=== PATIENT | male | born 1985 | race Caucasian/White ===

== ENCOUNTER 2017-12-25 12:57 | Inpatient (IN) | payer OTHER ==
[2017-12-25 14:30] VITALS: BMI 23.0
--- NOTE | 2017-12-25 15:38 | HP ---
CIWA Score - CIWA Score Nausea/Vomitin-No Nausea/No Vomiting Muscle Tremors: 4-Moderate,w/Arms Extend Anxiety: 4-Mod. Anxious/Guarded Agitation: 2 Paroxysmal Sweats: 3 Orientation: 0-Oriented Tacttile Disturbances: 2-Mild Itch/Numbness/Burn Auditory Disturbances: 0-None Visual Disturbances: 0-None Headache: 2-Mild CIWA-Ar Total Score: 17 Admission ROS [facility] - HPI Chief Complaint: "I need to get clean." Patient is here to Detox from Alcohol. Allergies/Adverse Reactions: Allergies Allergy/AdvReac Type Severity Reaction Status Date / Time Penicillins Allergy Severe Hives Verified 12/25/17 15:32 History of Present Illness: Patient is a 32 YO male here to Detox from Alcohol. This is patient's first Detox / Rehab admission ever. Exam Limitations: No Limitations - Ebola screening Have you traveled outside of the country in the last 21 days: No Have you had contact with anyone from an Ebola affected area: No Have you been sick,other than usual withdrawal symptoms: No Do you have a fever: No - Review of Systems Constitutional: Diaphoresis, Loss of Appetite, Malaise, Changes in sleep EENT: reports: No Symptoms Reported Respiratory: reports: No Symptoms reported Cardiac: reports: No Symptoms Reported GI: reports: No Symptoms Reported : reports: No Symptoms Reported Musculoskeletal: reports: Joint Pain, Muscle Pain, Joint Stiffness Integumentary: reports: No Symptoms Reported Neuro: reports: Headache, Tremors Endocrine: reports: No Symptoms Reported Hematology: reports: No Symptoms Reported Psychiatric: reports: Judgement Intact, Mood/Affect Appropiate, Orientated x3, Anxious, Depressed Other Systems: Reviewed and Negative Patient History - Patient Medical History Hx Anemia: No Hx Asthma: No Hx Chronic Obstructive Pulmonary Disease (COPD): No Hx Cancer: No Hx Cardiac Disorders: No Hx Congestive Heart Failure: No Hx Hypertension: No Hx Hypercholesterolemia: No Hx Pacemaker: No HX Cerebrovascular Accident: No Hx Seizures: No Hx Dementia: No Hx Diabetes: No Hx Gastrointestinal Disorders: No Hx Liver Disease: No Hx Genitourinary Disorders: No Hx Sexually Transmitted Disorders: No Hx Renal Disease (ESRD): No Hx Thyroid Disease: No Hx Human Immunodeficiency Virus (HIV): No (Last Tested: approx. 1 year ago: NEGATIVE.) Hx Hepatitis C: No (Last Tested: approx. 1 year ago: NEGATIVE.) Hx Depression: No Hx Suicide Attempt: No (PATIENT DENIES CURRENT SI / HI.) Hx Bipolar Disorder: No Hx Schizophrenia: No Other Medical History: DENIES. - Patient Surgical History Past Surgical History: No Hx Neurologic Surgery: No Hx Cataract Extraction: No Hx Cardiac Surgery: No Hx Lung Surgery: No Hx Breast Surgery: No Hx Breast Biopsy: No Hx Abdominal Surgery: No Hx Appendectomy: No Hx Cholecystectomy: No Hx Genitourinary Surgery: No Hx Orthopedic Surgery: No Other Surgical History: DENIES. Anesthesia Reaction: No - PPD History Previous Implant?: Yes Documented Results: Negative w/o proof Implanted On Prior R Admission?: No PPD to be Administered?: Yes - Reproductive History Patient is a Female of Child Bearing Age (11 -55 yrs old): No (PATIENT IS MALE.) - Smoking Cessation Smoking history: Never smoked Have you smoked in the past 12 months: No Cigars Per Day: 0 Hx Chewing Tobacco Use: No Initiated information on smoking cessation: No - Substance & Tx. History Hx Alcohol Use: Yes Hx Substance Use: Yes Substance Use Type: Alcohol, Cocaine Hx Substance Use Treatment: No - Substances Abused Alcohol Route: Oral Frequency: Daily Amount used: 0.5 L bottle Vodka. Age of first use: 19 Date of Last Use: 12/25/17 Cocaine Route: Inhalation Frequency: 3-6 times per week Amount used: 1 Gram. Age of first use: 19 Date of Last Use: 12/24/17 PCP Route: Smoking Frequency: Daily Amount used: 1 Blunt. Age of first use: 26 Date of Last Use: 12/24/17 Family Disease History - Family Disease History Family History: Denies Admission Physical Exam [facility] - Vital Signs Vital Signs: Vital Signs - 24 hr 12/25/17 14:28 Temperature 97.2 F L Pulse Rate 78 Respiratory 20 Rate Blood Pressure 140/66 - Physical General Appearance: Yes: No Apparent Distress, Nourished, Appropriately Dressed , Tremorous, Anxious HEENTM: Yes: Hearing grossly Normal, Normocephalic, Normal Voice, PAMELA, Pharynx Normal Respiratory: Yes: Chest Non-Tender, Lungs Clear, No Respiratory Distress, No Accessory Muscle Use Neck: Yes: No masses,lesions,Nodules, Supple, Trachea in good position Breast: Yes: Breast Exam Deferred Cardiology: Yes: Regular Rhythm, Regular Rate, S1, S2 Abdominal: Yes: Normal Bowel Sounds, Non Tender, Flat, Soft Genitourinary: Yes: Within Normal Limits Back: Yes: Normal Inspection Musculoskeletal: Yes: full range of Motion, Gait Steady, Muscle Pain Extremities: Yes: Normal Capillary Refill, Normal Range of Motion, Non-Tender, Tremors Neurological: Yes: Fully Oriented, Alert, Normal Mood/Affect, Normal Response Integumentary: Yes: Normal Color, Dry, Warm Lymphatic: Yes: Within Normal Limits - Diagnostic (1) Alcohol dependence with uncomplicated withdrawal Current Visit: Yes Status: Acute (2) Cocaine dependence, uncomplicated Current Visit: Yes Status: Chronic (3) PCP (phencyclidine) abuse Current Visit: Yes Status: Chronic Cleared for Admission [facility] - Detox or Rehab [facility] Level of Care: Medically Managed Detox Regimen/Protocol: Librium [facility] Breath Alcohol Content Breath Alcohol Content: 0 Urine Drug Screen - Results Drug Screen Negative: No Urine Drug Screen Results: SHYLA-Cocaine, PCP-Phencyclidine
[2017-12-25] MEDS ORDERED: chlordiazePOXIDE HCL 25 MG CAPSULE PO ONE ×2 (15:58→18:15)
[2017-12-25] MEDS ORDERED: MAG HYDROX/AL HYDROX/SIMETH 30 ML UNIT-DOSE CUP PO PRN (15:58)
[2017-12-25] MEDS ORDERED: MAGNESIUM CITRATE 300 ML BOTTLE PO PRN (15:58)
[2017-12-25] MEDS ORDERED: IBUPROFEN 400 MG TABLET (FP) PO PRN (15:58)
[2017-12-25] MEDS ORDERED: ACETAMINOPHEN 325 MG TABLET (FP) PO PRN (15:58)
[2017-12-25] MEDS ORDERED: MENTHOL/PHENOL 1 EACH UD MM PRN (15:58)
[2017-12-25] MEDS ORDERED: LOPERAMIDE HCL 2 MG CAPSULE PO PRN (15:58)
[2017-12-25] MEDS ORDERED: guaiFENesin/D-METHORPHAN HB 10 ML UNIT-DOSE CUPS PO PRN (15:58)
[2017-12-25] MEDS ORDERED: P-EPHED 60MG/TRIPROLIDI 2.5MG TABLET PO PRN (15:58)
[2017-12-25] MEDS ORDERED: chlordiazePOXIDE HCL 25 MG CAPSULE PO PRN (15:58)
[2017-12-25] MEDS ORDERED: MAGNESIUM HYDROX 2400MG/30ML ORAL SUSPENSION 30 ML CUP PO PRN (15:58)
[2017-12-25] MEDS: chlordiazePOXIDE HCL 25 MG CAPSULE PO SCH (22:24)
[2017-12-25] MEDS: THIAMINE HCL 100 MG TABLET (FP) PO SCH (22:24)
[2017-12-25] MEDS: HYDROCORTISONE 0.5% TOPICAL OINTMENT TUBE TP SCH (22:25)
[2017-12-25 22:52] LABS: URINE APPEARANCE CLEAR; URINE BILIRUBIN NEGATIVE (NEGATIVE); URINE BLOOD 1+ (NEGATIVE); URINE COLOR LTYELLOW; URINE GLUCOSE (UA) NEGATIVE (NEGATIVE); URINE KETONE NEGATIVE (NEGATIVE); URINE LEUK ESTERASE NEGATIVE (NEGATIVE); URINE NITRITE NEGATIVE (NEGATIVE); URINE PROTEIN NEGATIVE (NEGATIVE); URINE UROBILINOGEN NEGATIVE mg/dL (0.2-1.0)
[2017-12-25 22:59] LABS: URINE BACTERIA RARE /hpf (NONE SEEN)
[2017-12-26] MEDS: chlordiazePOXIDE HCL 25 MG CAPSULE PO SCH ×4 (05:54→22:19)
[2017-12-26 09:58] LABS: HEMOGLOBIN 13.1 GM/dL (11.7-16.9); MCH 33.6 pg (25.7-33.7); MCHC 34.4 g/dl (32.0-35.9); MEAN CELL VOLUME 97.7 fl (80-96); MEAN PLT VOLUME 8.1 fl (7.5-11.1); PLATELET COUNT 291 K/MM3 (134-434); RBC 3.89 M/mm3 (4.00-5.60); RDW 13.4 % (11.9-15.9)
--- NOTE | 2017-12-26 10:03 | EKG ---
Test Reason : Blood Pressure : / mmHG Vent. Rate : 058 BPM Atrial Rate : 058 BPM P-R Int : 126 ms QRS Dur : 100 ms QT Int : 414 ms P-R-T Axes : 038 -43 028 degrees QTc Int : 406 ms SINUS BRADYCARDIA NON-SPECIFIC INTRA-VENTRICULAR CONDUCTION DELAY ABNORMAL ECG Confirmed by GHAZAL KENNEDY MD ([id number]) on 12/26/2017 10:03:24 AM Referred By: Confirmed By:GHAZAL KENNEDY MD
--- NOTE | 2017-12-26 10:05 | EKG ---
Test Reason : Blood Pressure : / mmHG Vent. Rate : 063 BPM Atrial Rate : 063 BPM P-R Int : 120 ms QRS Dur : 092 ms QT Int : 398 ms P-R-T Axes : 023 -47 056 degrees QTc Int : 407 ms NORMAL SINUS RHYTHM LEFT ANTERIOR FASCICULAR BLOCK ABNORMAL ECG NO PREVIOUS ECGS AVAILABLE Confirmed by GHAZAL KENNEDY MD ([id number]) on 12/26/2017 10:04:32 AM Referred By: Confirmed By:GHAZAL KENNEDY MD
[2017-12-26 10:17] LABS: ALBUMIN 3.4 g/dl (3.4-5.0); ANION GAP 9 (8-16); BILIRUBIN,TOTAL 0.4 mg/dL (0.2-1.0); BLOOD UREA NITROGEN 16 mg/dL (7-18); CALCIUM 8.4 mg/dL (8.5-10.1); CHLORIDE 107 mmol/L (98-107); CO2 28 mmol/L (21-32); CREATININE 0.7 mg/dL (0.7-1.3); GLUCOSE,RANDOM 95 mg/dL (74-106); SGOT/AST 12 U/L (15-37); SGPT/ALT 16 U/L (12-78); SODIUM 144 mmol/L (136-145); TOT PROT 6.1 g/dl (6.4-8.2)
[2017-12-26 10:18] LABS: ALK PHOS 70 U/L (45-117)
[2017-12-26] MEDS: HYDROCORTISONE 0.5% TOPICAL OINTMENT TUBE TP SCH ×2 (11:01→22:19)
[2017-12-26] MEDS: PRENATAL VITAMINS W/ FOLIC ACID TABLET (FP) PO SCH (11:01)
--- NOTE | 2017-12-26 12:47 | PN ---
[facility] CIWA - CIWA Score Nausea/Vomitin-No Nausea/No Vomiting Muscle Tremors: 4-Moderate,w/Arms Extend Anxiety: 4-Mod. Anxious/Guarded Agitation: 3 Paroxysmal Sweats: No Perspiration Orientation: 0-Oriented Tacttile Disturbances: 0-None Auditory Disturbances: 0-None Visual Disturbances: 0-None Headache: 0-None Present CIWA-Ar Total Score: 11 S Progress Note (SOAP) Subjective: ANXIETY,IRRITABILITY,FATIGUE. Objective: 12/26/17 12:46 Vital Signs Temperature 96.5 F L 12/26/17 10:34 Pulse Rate 68 12/26/17 10:34 Respiratory Rate 18 12/26/17 10:34 Blood Pressure 109/66 12/26/17 10:34 O2 Sat by Pulse Oximetry (%) Laboratory Last Values WBC 5.0 K/mm3 (4.0-10.0) 12/26/17 07:00 RBC 3.89 M/mm3 (4.00-5.60) L 12/26/17 07:00 Hgb 13.1 GM/dL (11.7-16.9) 12/26/17 07:00 Hct 38.0 % (35.4-49) 12/26/17 07:00 MCV 97.7 fl (80-96) H 12/26/17 07:00 MCH 33.6 pg (25.7-33.7) 12/26/17 07:00 MCHC 34.4 g/dl (32.0-35.9) 12/26/17 07:00 RDW 13.4 % (11.9-15.9) 12/26/17 07:00 Plt Count 291 K/MM3 (134-434) 12/26/17 07:00 MPV 8.1 fl (7.5-11.1) 12/26/17 07:00 Sodium 144 mmol/L (136-145) 12/26/17 07:00 Potassium 4.0 mmol/L (3.5-5.1) 12/26/17 07:00 Chloride 107 mmol/L (98-107) 12/26/17 07:00 Carbon Dioxide 28 mmol/L (21-32) 12/26/17 07:00 Anion Gap 9 (8-16) 12/26/17 07:00 BUN 16 mg/dL (7-18) 12/26/17 07:00 Creatinine 0.7 mg/dL (0.7-1.3) 12/26/17 07:00 Creat Clearance w eGFR > 60 (>60) 12/26/17 07:00 Random Glucose 95 mg/dL (74-106) 12/26/17 07:00 Calcium 8.4 mg/dL (8.5-10.1) L 12/26/17 07:00 Total Bilirubin 0.4 mg/dL (0.2-1.0) 12/26/17 07:00 AST 12 U/L (15-37) L 12/26/17 07:00 ALT 16 U/L (12-78) 12/26/17 07:00 Alkaline Phosphatase 70 U/L (45-117) 12/26/17 07:00 Total Protein 6.1 g/dl (6.4-8.2) L 12/26/17 07:00 Albumin 3.4 g/dl (3.4-5.0) 12/26/17 07:00 Urine Color Ltyellow 12/25/17 20:20 Urine Appearance Clear 12/25/17 20:20 Urine pH 7.0 (5.0-8.0) 12/25/17 20:20 Ur Specific [place] 1.010 (1.001-1.035) 12/25/17 20:20 Urine Protein Negative (NEGATIVE) 12/25/17 20:20 Urine Glucose (UA) Negative (NEGATIVE) 12/25/17 20:20 Urine Ketones Negative (NEGATIVE) 12/25/17 20:20 Urine Blood 1+ (NEGATIVE) H 12/25/17 20:20 Urine Nitrite Negative (NEGATIVE) 12/25/17 20:20 Urine Bilirubin Negative (NEGATIVE) 12/25/17 20:20 Urine Urobilinogen Negative mg/dL (0.2-1.0) 12/25/17 20:20 Ur Leukocyte Esterase Negative (NEGATIVE) 12/25/17 20:20 Urine WBC (Auto) <1 /hpf (3-5) 12/25/17 20:20 Urine RBC (Auto) 1 /hpf (0-3) 12/25/17 20:20 Urine Bacteria Rare /hpf (NONE SEEN) 12/25/17 20:20 HIV 1&2 Antibody Screen Negative 12/26/17 07:00 HIV P24 Antigen Negative 12/26/17 07:00 Assessment: 12/26/17 12:47 WITHDRAWAL SX Plan: CONTINUE DETOX INCREASE PO FLUIDS
[2017-12-26] MEDS: THIAMINE HCL 100 MG TABLET (FP) PO SCH (22:19)
[2017-12-27] MEDS: chlordiazePOXIDE HCL 25 MG CAPSULE PO SCH ×3 (06:04→17:06)
[2017-12-27] MEDS: PRENATAL VITAMINS W/ FOLIC ACID TABLET (FP) PO SCH (10:36)
[2017-12-27] MEDS: HYDROCORTISONE 0.5% TOPICAL OINTMENT TUBE TP SCH ×2 (11:36→22:31)
--- NOTE | 2017-12-27 16:03 | PN ---
[facility] CIWA - CIWA Score Nausea/Vomitin-No Nausea/No Vomiting Muscle Tremors: 2 Anxiety: 4-Mod. Anxious/Guarded Agitation: 0-Normal Activity Paroxysmal Sweats: 3 Orientation: 0-Oriented Tacttile Disturbances: 2-Mild Itch/Numbness/Burn Auditory Disturbances: 0-None Visual Disturbances: 0-None Headache: 0-None Present CIWA-Ar Total Score: 11 S Progress Note (SOAP) Subjective: Anxious, Sweating, Interrupted sleep. Objective: PATIENT A & O X 3, OBSERVED AMBULATING ON UNIT. NO ACUTE DISTRESS. 12/27/17 16:04 Vital Signs Temperature 96.9 F L 12/27/17 13:50 Pulse Rate 97 H 12/27/17 13:50 Respiratory Rate 20 12/27/17 13:50 Blood Pressure 112/67 12/27/17 13:50 O2 Sat by Pulse Oximetry (%) Laboratory Tests 12/25/17 12/26/17 12/26/17 20:20 07:00 07:00 WBC 5.0 RBC 3.89 L Hgb 13.1 Hct 38.0 MCV 97.7 H MCH 33.6 MCHC 34.4 RDW 13.4 Plt Count 291 MPV 8.1 Sodium 144 Potassium 4.0 Chloride 107 Carbon Dioxide 28 Anion Gap 9 BUN 16 Creatinine 0.7 Creat Clearance w eGFR > 60 Random Glucose 95 Calcium 8.4 L Total Bilirubin 0.4 AST 12 L ALT 16 Alkaline Phosphatase 70 Total Protein 6.1 L Albumin 3.4 Urine Color Ltyellow Urine Appearance Clear Urine pH 7.0 Ur Specific [place] 1.010 Urine Protein Negative Urine Glucose (UA) Negative Urine Ketones Negative Urine Blood 1+ H Urine Nitrite Negative Urine Bilirubin Negative Urine Urobilinogen Negative Ur Leukocyte Esterase Negative Urine WBC (Auto) <1 Urine RBC (Auto) 1 Urine Bacteria Rare RPR Titer Hep C Ab Diagnostic HIV 1&2 Antibody Screen HIV P24 Antigen 12/26/17 12/26/17 12/26/17 07:00 07:00 07:00 WBC RBC Hgb Hct MCV MCH MCHC RDW Plt Count MPV Sodium Potassium Chloride Carbon Dioxide Anion Gap BUN Creatinine Creat Clearance w eGFR Random Glucose Calcium Total Bilirubin AST ALT Alkaline Phosphatase Total Protein Albumin Urine Color Urine Appearance Urine pH Ur Specific [place] Urine Protein Urine Glucose (UA) Urine Ketones Urine Blood Urine Nitrite Urine Bilirubin Urine Urobilinogen Ur Leukocyte Esterase Urine WBC (Auto) Urine RBC (Auto) Urine Bacteria RPR Titer Nonreactive Hep C Ab Diagnostic <0.1 HIV 1&2 Antibody Screen Negative HIV P24 Antigen Negative labs noted. Assessment: 12/27/17 16:04 WITHDRAWAL SYMPTOMS. Plan: CONTINUE DETOX.
[2017-12-27] MEDS: THIAMINE HCL 100 MG TABLET (FP) PO SCH (22:31)
[2017-12-27] MEDS: chlordiazePOXIDE 5 MG CAPSULE PO SCH (22:32)
[2017-12-27] MEDS: MELATONIN 5 MG TABLETS PO PRN (23:00)
[2017-12-28] MEDS: chlordiazePOXIDE 5 MG CAPSULE PO SCH ×3 (07:21→17:08)
[2017-12-28] MEDS: HYDROCORTISONE 0.5% TOPICAL OINTMENT TUBE TP SCH ×2 (10:47→22:34)
[2017-12-28] MEDS: PRENATAL VITAMINS W/ FOLIC ACID TABLET (FP) PO SCH (10:47)
--- NOTE | 2017-12-28 13:30 | PN ---
S Progress Note (SOAP) Subjective: Nausea, stomach ache, chills, interrupted sleep, headache, diarrhea Objective: 12/28/17 13:28 Last Vital Signs Temp Pulse Resp BP Pulse Ox 97.2 F L 84 18 109/70 12/28/17 09:50 12/28/17 09:50 12/28/17 09:50 12/28/17 09:50 Laboratory Tests 12/25/17 12/26/17 12/26/17 20:20 07:00 07:00 WBC 5.0 RBC 3.89 L Hgb 13.1 Hct 38.0 MCV 97.7 H MCH 33.6 MCHC 34.4 RDW 13.4 Plt Count 291 MPV 8.1 Sodium 144 Potassium 4.0 Chloride 107 Carbon Dioxide 28 Anion Gap 9 BUN 16 Creatinine 0.7 Creat Clearance w eGFR > 60 Random Glucose 95 Calcium 8.4 L Total Bilirubin 0.4 AST 12 L ALT 16 Alkaline Phosphatase 70 Total Protein 6.1 L Albumin 3.4 Urine Color Ltyellow Urine Appearance Clear Urine pH 7.0 Ur Specific [place] 1.010 Urine Protein Negative Urine Glucose (UA) Negative Urine Ketones Negative Urine Blood 1+ H Urine Nitrite Negative Urine Bilirubin Negative Urine Urobilinogen Negative Ur Leukocyte Esterase Negative Urine WBC (Auto) <1 Urine RBC (Auto) 1 Urine Bacteria Rare RPR Titer Hep C Ab Diagnostic HIV 1&2 Antibody Screen HIV P24 Antigen 12/26/17 12/26/17 12/26/17 07:00 07:00 07:00 WBC RBC Hgb Hct MCV MCH MCHC RDW Plt Count MPV Sodium Potassium Chloride Carbon Dioxide Anion Gap BUN Creatinine Creat Clearance w eGFR Random Glucose Calcium Total Bilirubin AST ALT Alkaline Phosphatase Total Protein Albumin Urine Color Urine Appearance Urine pH Ur Specific [place] Urine Protein Urine Glucose (UA) Urine Ketones Urine Blood Urine Nitrite Urine Bilirubin Urine Urobilinogen Ur Leukocyte Esterase Urine WBC (Auto) Urine RBC (Auto) Urine Bacteria RPR Titer Nonreactive Hep C Ab Diagnostic <0.1 HIV 1&2 Antibody Screen Negative HIV P24 Antigen Negative Labs reviewed: UA 1+ blood Assessment: 12/28/17 13:29 Withdrawal symptoms Noted with microscopic hematuria Plan: Continue detox Microscopic hematuria: encouraged to drink lots of water, repeat UA
[2017-12-28] MEDS: chlordiazePOXIDE HCL 10 MG CAPSULE PO SCH (22:34)
[2017-12-28] MEDS: THIAMINE HCL 100 MG TABLET (FP) PO SCH (22:34)
[2017-12-28] MEDS: MELATONIN 5 MG TABLETS PO PRN (22:35)
[2017-12-28 22:47] LABS: URINE APPEARANCE CLEAR; URINE BILIRUBIN NEGATIVE (<2.0 mg/dL); URINE BLOOD 1+ (NEGATIVE); URINE COLOR YELLOW; URINE GLUCOSE (UA) NEGATIVE (NEGATIVE); URINE KETONE NEGATIVE (NEGATIVE); URINE LEUK ESTERASE NEGATIVE (NEGATIVE); URINE NITRITE NEGATIVE (NEGATIVE); URINE PROTEIN NEGATIVE (NEGATIVE); URINE UROBILINOGEN NEGATIVE mg/dL (0.2-1.0)
[2017-12-28 22:53] LABS: EPI CELLS RARE /HPF (FEW); URINE MUCUS FEW
[2017-12-29] MEDS: chlordiazePOXIDE HCL 10 MG CAPSULE PO SCH ×2 (06:02→10:39)
[2017-12-29] MEDS: HYDROCORTISONE 0.5% TOPICAL OINTMENT TUBE TP SCH (10:39)
[2017-12-29] MEDS: PRENATAL VITAMINS W/ FOLIC ACID TABLET (FP) PO SCH (10:39)
--- NOTE | 2017-12-29 12:42 | PN ---
[facility] Progress Note (SOAP) Subjective: Patient denies any current Detox symptoms and reports that he feels well overall. Objective: PATIENT A & O X 3, OBSERVED AMBULATING ON UNIT. NO ACUTE DISTRESS. 12/29/17 12:46 Vital Signs Temperature 95.6 F L 12/29/17 09:30 Pulse Rate 72 12/29/17 09:30 Respiratory Rate 18 12/29/17 09:30 Blood Pressure 128/80 12/29/17 09:30 O2 Sat by Pulse Oximetry (%) Laboratory Tests 12/25/17 12/26/17 12/26/17 20:20 07:00 07:00 WBC 5.0 RBC 3.89 L Hgb 13.1 Hct 38.0 MCV 97.7 H MCH 33.6 MCHC 34.4 RDW 13.4 Plt Count 291 MPV 8.1 Sodium 144 Potassium 4.0 Chloride 107 Carbon Dioxide 28 Anion Gap 9 BUN 16 Creatinine 0.7 Creat Clearance w eGFR > 60 Random Glucose 95 Calcium 8.4 L Total Bilirubin 0.4 AST 12 L ALT 16 Alkaline Phosphatase 70 Total Protein 6.1 L Albumin 3.4 Urine Color Ltyellow Urine Appearance Clear Urine pH 7.0 Ur Specific [place] 1.010 Urine Protein Negative Urine Glucose (UA) Negative Urine Ketones Negative Urine Blood 1+ H Urine Nitrite Negative Urine Bilirubin Negative Urine Urobilinogen Negative Ur Leukocyte Esterase Negative Urine WBC (Auto) <1 Urine RBC (Auto) 1 Ur Epithelial Cells Urine Bacteria Rare Urine Mucus RPR Titer Hep C Ab Diagnostic HIV 1&2 Antibody Screen HIV P24 Antigen 12/26/17 12/26/17 12/26/17 07:00 07:00 07:00 WBC RBC Hgb Hct MCV MCH MCHC RDW Plt Count MPV Sodium Potassium Chloride Carbon Dioxide Anion Gap BUN Creatinine Creat Clearance w eGFR Random Glucose Calcium Total Bilirubin AST ALT Alkaline Phosphatase Total Protein Albumin Urine Color Urine Appearance Urine pH Ur Specific [place] Urine Protein Urine Glucose (UA) Urine Ketones Urine Blood Urine Nitrite Urine Bilirubin Urine Urobilinogen Ur Leukocyte Esterase Urine WBC (Auto) Urine RBC (Auto) Ur Epithelial Cells Urine Bacteria Urine Mucus RPR Titer Nonreactive Hep C Ab Diagnostic <0.1 HIV 1&2 Antibody Screen Negative HIV P24 Antigen Negative 12/28/17 15:47 WBC RBC Hgb Hct MCV MCH MCHC RDW Plt Count MPV Sodium Potassium Chloride Carbon Dioxide Anion Gap BUN Creatinine Creat Clearance w eGFR Random Glucose Calcium Total Bilirubin AST ALT Alkaline Phosphatase Total Protein Albumin Urine Color Yellow Urine Appearance Clear Urine pH 6.0 Ur Specific [place] 1.023 Urine Protein Negative Urine Glucose (UA) Negative Urine Ketones Negative Urine Blood 1+ H Urine Nitrite Negative Urine Bilirubin Negative Urine Urobilinogen Negative Ur Leukocyte Esterase Negative Urine WBC (Auto) <1 Urine RBC (Auto) 4 Ur Epithelial Cells Rare Urine Bacteria Urine Mucus Few RPR Titer Hep C Ab Diagnostic HIV 1&2 Antibody Screen HIV P24 Antigen LABS NOTED. Assessment: 12/29/17 12:47 COMPLETION OF DETOX REGIMEN. 12/29/17 12:48 Plan: PATIENT SCHEDULED FOR DISCHARGE FROM DETOX TODAY. PATIENT GOING TO [facility] ([place] FOR AFTERCARE.
--- NOTE | 2017-12-29 12:54 | DS ---
[facility] Detox Discharge Summary Admission Date: 12/25/17 Discharge Date: 12/29/17 - History Present History: Alcohol Dependence, Cocaine Dependence, Pcp Dependence Additional Comments: PATIENT GOING TO [facility] ([facility] [place]) FOR AFTERCARE. PATIENT WAS DISCHARGED FROM DETOX UNIT IN STABLE MEDICAL CONDITION. - Physical Exam Results Vital Signs: Vital Signs Temperature 95.6 F L 12/29/17 09:30 Pulse Rate 72 12/29/17 09:30 Respiratory Rate 18 12/29/17 09:30 Blood Pressure 128/80 12/29/17 09:30 O2 Sat by Pulse Oximetry (%) Pertinent Admission Physical Exam Findings: WITHDRAWAL SYMPTOMS. Laboratory Tests 12/25/17 12/26/17 12/26/17 20:20 07:00 07:00 WBC 5.0 RBC 3.89 L Hgb 13.1 Hct 38.0 MCV 97.7 H MCH 33.6 MCHC 34.4 RDW 13.4 Plt Count 291 MPV 8.1 Sodium 144 Potassium 4.0 Chloride 107 Carbon Dioxide 28 Anion Gap 9 BUN 16 Creatinine 0.7 Creat Clearance w eGFR > 60 Random Glucose 95 Calcium 8.4 L Total Bilirubin 0.4 AST 12 L ALT 16 Alkaline Phosphatase 70 Total Protein 6.1 L Albumin 3.4 Urine Color Ltyellow Urine Appearance Clear Urine pH 7.0 Ur Specific [place] 1.010 Urine Protein Negative Urine Glucose (UA) Negative Urine Ketones Negative Urine Blood 1+ H Urine Nitrite Negative Urine Bilirubin Negative Urine Urobilinogen Negative Ur Leukocyte Esterase Negative Urine WBC (Auto) <1 Urine RBC (Auto) 1 Ur Epithelial Cells Urine Bacteria Rare Urine Mucus RPR Titer Hep C Ab Diagnostic HIV 1&2 Antibody Screen HIV P24 Antigen 12/26/17 12/26/17 12/26/17 07:00 07:00 07:00 WBC RBC Hgb Hct MCV MCH MCHC RDW Plt Count MPV Sodium Potassium Chloride Carbon Dioxide Anion Gap BUN Creatinine Creat Clearance w eGFR Random Glucose Calcium Total Bilirubin AST ALT Alkaline Phosphatase Total Protein Albumin Urine Color Urine Appearance Urine pH Ur Specific [place] Urine Protein Urine Glucose (UA) Urine Ketones Urine Blood Urine Nitrite Urine Bilirubin Urine Urobilinogen Ur Leukocyte Esterase Urine WBC (Auto) Urine RBC (Auto) Ur Epithelial Cells Urine Bacteria Urine Mucus RPR Titer Nonreactive Hep C Ab Diagnostic <0.1 HIV 1&2 Antibody Screen Negative HIV P24 Antigen Negative 12/28/17 15:47 WBC RBC Hgb Hct MCV MCH MCHC RDW Plt Count MPV Sodium Potassium Chloride Carbon Dioxide Anion Gap BUN Creatinine Creat Clearance w eGFR Random Glucose Calcium Total Bilirubin AST ALT Alkaline Phosphatase Total Protein Albumin Urine Color Yellow Urine Appearance Clear Urine pH 6.0 Ur Specific [place] 1.023 Urine Protein Negative Urine Glucose (UA) Negative Urine Ketones Negative Urine Blood 1+ H Urine Nitrite Negative Urine Bilirubin Negative Urine Urobilinogen Negative Ur Leukocyte Esterase Negative Urine WBC (Auto) <1 Urine RBC (Auto) 4 Ur Epithelial Cells Rare Urine Bacteria Urine Mucus Few RPR Titer Hep C Ab Diagnostic HIV 1&2 Antibody Screen HIV P24 Antigen LABS NOTED. - Treatment Hospital Course: Detox Protocol Followed, Detoxed Safely, Responded well, Discharged Condition Good, Rehab Referral Accepted Patient has Accepted a Rehab Referral to: [facility] ([place] . - Medication Discharge Medications: Ambulatory Orders NK [No Known Home Medication] 12/25/17 - Diagnosis (1) Alcohol dependence with uncomplicated withdrawal Current Visit: Yes Status: Acute (2) Cocaine dependence, uncomplicated Current Visit: Yes Status: Chronic (3) PCP (phencyclidine) abuse Current Visit: Yes Status: Acute - AMA Did Patient Leave Against Medical Advice: No
[2017-12-29 13:34] VITALS: BP 115/75; PULSE 80; TEMP 97
== END 2017-12-29 14:55 | disposition other institution (70) | DRG 774 ==
LOC: YASAS 12:57 → Y3N 17:23
PROVIDERS: ADMIT Internal Medicine; ATTEND Internal Medicine
PROC: HZ2ZZZZ Detoxification Services for Substance Abuse Treatment (ICD-10-PCS; principal; 2017-12-25)
DX: F10.230 Alcohol dependence with withdrawal, uncomplicated (principal); F14.20 Cocaine dependence, uncomplicated; F16.20 Hallucinogen dependence, uncomplicated; R31.29 Other microscopic hematuria
CPT/HCPCS: 36415; 80053; 81003; 81015; 85027; 86593; 87389; 93005; 93010

== ENCOUNTER 2017-12-29 15:19 | Inpatient (IN) | payer OTHER ==
--- NOTE | 2017-12-29 12:56 | HP ---
[facility] Rehab Assess/Revision - Admission History Admitted to Rehab from: [facility] Date of Admission to Rehab: 12/29/2017 - Vital signs Vital Signs: NOTED; STABLE. - Findings Detox History & Physical reviewed: Yes Concur with findings: Yes Comments/Additional Findings: PATIENT'S MEDICAL / MEDICATION HISTORY REVIEWED PRIOR TO DISCHARGE FROM DETOX UNIT. PATIENT WAS DISCHARGED FROM DETOX UNIT TO BE TAKEN TO REHAB UNIT IN STABLE MEDICAL CONDITION. Inpatient Rehab Admission - Initial Determination Are CD services needed?: Yes Free of communicable disease: Yes Not in need of hospitalization: Yes - Rehab Admission Criteria Poor recovery environment: Yes Patient is meeting Inpatient Rehab admission criteria:: Yes
[~2017-12-29 15:19] MED LIST: LOPERAMIDE HCL 2 MG CAPSULE PO PRN; MAGNESIUM CITRATE 300 ML BOTTLE PO PRN; MAGNESIUM HYDROX 2400MG/30ML ORAL SUSPENSION 30 ML CUP PO PRN; MENTHOL/PHENOL 1 EACH UD MM PRN; P-EPHED 60MG/TRIPROLIDI 2.5MG TABLET PO PRN; guaiFENesin/D-METHORPHAN HB 10 ML UNIT-DOSE CUPS PO PRN
[2017-12-29 15:54] VITALS: BMI 24.4
[2017-12-29] MEDS: THIAMINE HCL 100 MG TABLET (FP) PO SCH (21:29)
[2017-12-29] MEDS: MELATONIN 5 MG TABLETS PO SCH (21:29)
--- NOTE | 2017-12-30 06:07 | HP ---
Psychiatrist Admission - Data Date of interview: 12/30/17 Admission source: [facility]/3[facility] Identifying data: This is the first [facility] admission for this 32 years old single male, unemployed on food stamp , homeless Medical History: Unremarkable Psychiatric History: Denies history of previous psychiatric treatment Physical/Sexual Abuse/Trauma History: Denies history of emotional, physical or sexual abuse as well as DV relationship. No service Additional Comment: Reports history of multiple previous misdemeanor arrests. No probation Vital Signs: Vital Signs - 24 hr 12/29/17 12/30/17 12/30/17 15:44 00:30 03:30 Temperature 98.2 F Pulse Rate 79 Respiratory 19 20 18 Rate Blood Pressure 126/68 Allergies/Adverse Reactions: Allergies Allergy/AdvReac Type Severity Reaction Status Date / Time Penicillins Allergy Severe Hives Verified 12/25/17 15:32 Date of last physical exam: 12/25/17 Concur with the findings of this exam: Yes - Substance Abuse/Tx History Hx Alcohol Use: Yes Hx Substance Use: Yes Substance Use Type: Alcohol (Started drinking alcohol at age 19, consumes half a liter of vodka daily. Last drink on 12/25/17), Cocaine (Started using cocaine at age 19, consumes one gram 3-6 times weekly. Last used on 12/24/17), Marijuana (Started smoking marijuana at age 26, consumes one blunt daily. Last smoked on ) Hx Substance Use Treatment: Yes (One previous inpt detox admission. First inpt rehab) Mental Status Exam - Mental Status Exam Alert and Oriented to: Time, Place, Person Cognitive Function: Fair Patient Appearance: Well Groomed Mood: Hopeful, Euthymic Affect: Appropriate Patient Behavior: Cooperative Speech Pattern: Clear Voice Loudness: Normal Thought Process: Intact, Goal Oriented Thought Disorder: Not Present Hallucinations: Denies Suicidal Ideation: Denies Homicidal Ideation: Denies Insight/Judgement: Fair Sleep: Poorly Appetite: Good Muscle strength/Tone: Normal Gait/Station: Normal Psychiatric Findings - Problem List (Bruno 1, 2,3) (1) Alcohol dependence Current Visit: Yes Status: Acute (2) Cocaine dependence Current Visit: Yes Status: Acute (3) Cannabis dependence Current Visit: Yes Status: Acute - Initial Treatment Plan Initial Treatment Plan: Monitor progress
[2017-12-30] MEDS: PRENATAL VITAMINS W/ FOLIC ACID TABLET (FP) PO SCH (09:53)
[2017-12-30] MEDS: THIAMINE HCL 100 MG TABLET (FP) PO SCH (21:33)
[2017-12-30] MEDS: MELATONIN 5 MG TABLETS PO SCH (21:33)
[2017-12-31] MEDS: PRENATAL VITAMINS W/ FOLIC ACID TABLET (FP) PO SCH (09:53)
[2017-12-31] MEDS: THIAMINE HCL 100 MG TABLET (FP) PO SCH (21:30)
[2017-12-31] MEDS: MELATONIN 5 MG TABLETS PO SCH (21:31)
[2018-01-01] MEDS: PRENATAL VITAMINS W/ FOLIC ACID TABLET (FP) PO SCH (10:14)
[2018-01-01] MEDS: MELATONIN 5 MG TABLETS PO SCH (21:37)
[2018-01-01] MEDS: THIAMINE HCL 100 MG TABLET (FP) PO SCH (21:37)
[2018-01-02] MEDS: PRENATAL VITAMINS W/ FOLIC ACID TABLET (FP) PO SCH (10:40)
[2018-01-02] MEDS: IBUPROFEN 400 MG TABLET (FP) PO PRN (14:39)
[2018-01-02] MEDS: MELATONIN 5 MG TABLETS PO SCH (21:55)
[2018-01-02] MEDS: THIAMINE HCL 100 MG TABLET (FP) PO SCH (21:55)
[2018-01-03] MEDS: PRENATAL VITAMINS W/ FOLIC ACID TABLET (FP) PO SCH (09:50)
[2018-01-03] MEDS: MELATONIN 5 MG TABLETS PO SCH (21:31)
[2018-01-03] MEDS: THIAMINE HCL 100 MG TABLET (FP) PO SCH (21:31)
[2018-01-04] MEDS: PRENATAL VITAMINS W/ FOLIC ACID TABLET (FP) PO SCH (09:58)
[2018-01-04] MEDS: MELATONIN 5 MG TABLETS PO SCH (21:23)
[2018-01-04] MEDS: THIAMINE HCL 100 MG TABLET (FP) PO SCH (21:23)
[2018-01-05] MEDS: MAG HYDROX/AL HYDROX/SIMETH 30 ML UNIT-DOSE CUP PO PRN ×4 (01:28→21:23)
[2018-01-05] MEDS: PRENATAL VITAMINS W/ FOLIC ACID TABLET (FP) PO SCH (10:36)
[2018-01-05] MEDS: MELATONIN 5 MG TABLETS PO SCH (21:21)
[2018-01-05] MEDS: THIAMINE HCL 100 MG TABLET (FP) PO SCH (21:21)
[2018-01-06] MEDS: PRENATAL VITAMINS W/ FOLIC ACID TABLET (FP) PO SCH (10:04)
--- NOTE | 2018-01-06 14:29 | PN ---
[facility] Progress Note Note: Reports itchy , red rash on nose and nasal labia folds Vital Signs Temperature 97.7 F 01/06/18 07:01 Pulse Rate 65 01/06/18 07:01 Respiratory Rate 18 01/06/18 07:01 Blood Pressure 110/68 01/06/18 07:01 O2 Sat by Pulse Oximetry (%) A/P AO x3, no apparent distress No adventicious breath sounds Non-tender, + erythematous flaky rash on nose and nasal labia folds Plan: Increase fluids Hydrocortisone cream BID Aveno soap keep area clean and dry Patient instructed to not scrat area to prevent secondary infection Continue to monitor
[2018-01-06] MEDS: THIAMINE HCL 100 MG TABLET (FP) PO SCH (21:46)
[2018-01-06] MEDS: MELATONIN 5 MG TABLETS PO SCH (21:46)
[2018-01-06] MEDS ORDERED: PT OWN MED DRAWER 7, Y5N ONE (21:48)
[2018-01-07] MEDS: HYDROCORTISONE 1% TOPICAL LOTION 118 ML BOTTLE TP PRN (10:09)
[2018-01-07] MEDS: PRENATAL VITAMINS W/ FOLIC ACID TABLET (FP) PO SCH (10:09)
[2018-01-07] MEDS: MELATONIN 5 MG TABLETS PO SCH (21:27)
[2018-01-07] MEDS: THIAMINE HCL 100 MG TABLET (FP) PO SCH (21:27)
[2018-01-08] MEDS: HYDROCORTISONE 1% TOPICAL LOTION 118 ML BOTTLE TP PRN (10:03)
[2018-01-08] MEDS: PRENATAL VITAMINS W/ FOLIC ACID TABLET (FP) PO SCH (10:03)
[2018-01-08] MEDS: ACETAMINOPHEN 325 MG TABLET (FP) PO PRN (19:40)
[2018-01-08] MEDS: MELATONIN 5 MG TABLETS PO SCH (21:34)
[2018-01-08] MEDS: THIAMINE HCL 100 MG TABLET (FP) PO SCH (21:34)
[2018-01-09] MEDS: PRENATAL VITAMINS W/ FOLIC ACID TABLET (FP) PO SCH (10:06)
[2018-01-09] MEDS: HYDROCORTISONE 1% TOPICAL LOTION 118 ML BOTTLE TP PRN (10:06)
[2018-01-09] MEDS: ACETAMINOPHEN 325 MG TABLET (FP) PO PRN (19:28)
[2018-01-09] MEDS: THIAMINE HCL 100 MG TABLET (FP) PO SCH (21:38)
[2018-01-09] MEDS: MELATONIN 5 MG TABLETS PO SCH (21:38)
[2018-01-10] MEDS: PRENATAL VITAMINS W/ FOLIC ACID TABLET (FP) PO SCH (10:55)
[2018-01-10] MEDS: MELATONIN 5 MG TABLETS PO SCH (21:32)
[2018-01-10] MEDS: THIAMINE HCL 100 MG TABLET (FP) PO SCH (22:43)
[2018-01-11] MEDS: PRENATAL VITAMINS W/ FOLIC ACID TABLET (FP) PO SCH (11:11)
[2018-01-11] MEDS: MELATONIN 5 MG TABLETS PO SCH (21:45)
[2018-01-11] MEDS: THIAMINE HCL 100 MG TABLET (FP) PO SCH (21:45)
[2018-01-12] MEDS: PRENATAL VITAMINS W/ FOLIC ACID TABLET (FP) PO SCH (10:16)
[2018-01-12] MEDS: HYDROCORTISONE 1% TOPICAL LOTION 118 ML BOTTLE TP PRN (10:18)
[2018-01-12] MEDS ORDERED: PT OWN MED DRAWER 7, Y5N ONE (10:18)
[2018-01-12] MEDS: THIAMINE HCL 100 MG TABLET (FP) PO SCH (21:29)
[2018-01-12] MEDS: MELATONIN 5 MG TABLETS PO SCH (21:29)
[2018-01-13] MEDS: PRENATAL VITAMINS W/ FOLIC ACID TABLET (FP) PO SCH (10:33)
[2018-01-13] MEDS: IBUPROFEN 400 MG TABLET (FP) PO PRN (14:22)
[2018-01-13] MEDS: MELATONIN 5 MG TABLETS PO SCH (21:29)
[2018-01-13] MEDS: THIAMINE HCL 100 MG TABLET (FP) PO SCH (21:29)
[2018-01-14] MEDS: PRENATAL VITAMINS W/ FOLIC ACID TABLET (FP) PO SCH (10:17)
[2018-01-14] MEDS: THIAMINE HCL 100 MG TABLET (FP) PO SCH (21:32)
[2018-01-14] MEDS: MELATONIN 5 MG TABLETS PO SCH (21:32)
[2018-01-15] MEDS: PRENATAL VITAMINS W/ FOLIC ACID TABLET (FP) PO SCH (10:00)
[2018-01-15] MEDS: NALTREXONE HCL 50 MG TABLET PO SCH (10:00)
[2018-01-15] MEDS: THIAMINE HCL 100 MG TABLET (FP) PO SCH (21:46)
[2018-01-15] MEDS: MELATONIN 5 MG TABLETS PO SCH (21:46)
[2018-01-16] MEDS: PRENATAL VITAMINS W/ FOLIC ACID TABLET (FP) PO SCH (10:03)
[2018-01-16] MEDS: NALTREXONE HCL 50 MG TABLET PO SCH (10:03)
[2018-01-16] MEDS: THIAMINE HCL 100 MG TABLET (FP) PO SCH (21:23)
[2018-01-16] MEDS: MELATONIN 5 MG TABLETS PO SCH (21:24)
[2018-01-17] MEDS: PRENATAL VITAMINS W/ FOLIC ACID TABLET (FP) PO SCH (09:55)
[2018-01-17] MEDS: NALTREXONE HCL 50 MG TABLET PO SCH (09:55)
[2018-01-17] MEDS: HYDROCORTISONE 1% TOPICAL LOTION 118 ML BOTTLE TP PRN (09:56)
[2018-01-17] MEDS ORDERED: PT OWN MED DRAWER 7, Y5N ONE (09:57)
[2018-01-17] MEDS: MELATONIN 5 MG TABLETS PO SCH (21:33)
[2018-01-17] MEDS: THIAMINE HCL 100 MG TABLET (FP) PO SCH (21:33)
[2018-01-18] MEDS: HYDROCORTISONE 1% TOPICAL LOTION 118 ML BOTTLE TP PRN (09:46)
[2018-01-18] MEDS: NALTREXONE HCL 50 MG TABLET PO SCH (09:46)
[2018-01-18] MEDS: PRENATAL VITAMINS W/ FOLIC ACID TABLET (FP) PO SCH (09:46)
--- NOTE | 2018-01-18 12:43 | PN ---
Psychiatric Progress Note Vital Signs: Vital Signs Period Temp Pulse Resp BP Sys/Fernandes Pulse Ox Last 24 Hr 97.9 F 74 18-20 115/69 Date of Session: 01/18/18 Chief Complaint:: Discharge Note HPI: Patient addressing Alcohol, Cocaine and Cannabis Dependence Current Medications: Active Medications Generic Name Dose Route Start Last Admin Trade Name Freq PRN Reason Stop Dose Admin Acetaminophen 650 mg 12/29/17 12:56 01/09/18 19:28 Tylenol - PO 650 mg Q4H PRN Administration FEVER Al Hydroxide/Mg Hydroxide 30 ml 12/29/17 12:56 01/05/18 21:23 Mylanta Oral Suspension - PO 30 ml Q6H PRN Administration DYSPEPSIA Eucalyptus/Menthol/Phenol/Sorbitol 1 each 12/29/17 12:56 Cepastat Lozenge - MM Q4H PRN SORE THROAT Guaifenesin 10 ml 12/29/17 12:56 Robitussin Dm - PO Q6H PRN COUGH Hydrocortisone 1 applic 01/06/18 15:12 01/18/18 09:46 Hytone 1% Lotion - TP 1 applic BID PRN Administration rash Ibuprofen 400 mg 12/29/17 12:56 01/13/18 14:22 Motrin - PO 400 mg Q6H PRN Administration Pain Level 4-6 Loperamide HCl 4 mg 12/29/17 12:56 Imodium - PO Q6H PRN DIARRHEA Magnesium Citrate 300 ml 12/29/17 12:56 Citroma - PO Q48H PRN CONSTIPATION Magnesium Hydroxide 30 ml 12/29/17 12:56 Milk Of Magnesia - PO DAILY PRN CONSTIPATION Melatonin 5 mg 12/29/17 22:00 01/17/18 21:33 Melatonin PO 5 mg HS MARYURI Administration Naltrexone HCl 50 mg 01/15/18 10:00 01/18/18 09:46 Revia - PO 50 mg DAILY MARYURI Administration Multivit/Folic Acid/Iron 1 tab 12/30/17 10:00 01/18/18 09:46 Vitamins (Sjr) - PO 1 tab DAILY MARYURI Administration Pseudoephedrine/Triprolidine 1 combo 12/29/17 12:56 Actifed - PO TID PRN NASAL CONGESTION Thiamine HCl 100 mg 12/29/17 22:00 01/17/18 21:33 Vitamin B1 - PO 100 mg HS MARYURI Administration Current Side Effect: No Lab tests ordered: Yes Lab tests reviewed: Yes Provider note:: Patient will complete this program on 01/19 18. He has met his treatment goals and will continue to address his issues in senior living treatment at [facility]. Told health technical writer that from his partticipation in this program, he has familiarized himself with the 12 steps. He is stable for discharge on Total face to face time:: 35 Mental Status Exam - Mental Status Exam Alert and Oriented to: Time, Place, Person Cognitive Function: Fair Patient Appearance: Well Groomed Mood: Hopeful, Euthymic Affect: Appropriate Patient Behavior: Cooperative Speech Pattern: Clear Voice Loudness: Normal Thought Process: Intact, Goal Oriented Thought Disorder: Not Present Hallucinations: Denies Suicidal Ideation: Denies Homicidal Ideation: Denies Insight/Judgement: Fair Sleep: Well Appetite: Good Muscle strength/Tone: Normal Gait/Station: Normal Psychiatric Treatment Plan - Problem List (1) Alcohol dependence Current Visit: Yes (2) Cocaine dependence Current Visit: Yes (3) Cannabis dependence Current Visit: Yes Initial treatment plan: Patient will be discharged tomorrow and referred to terminal system operator residential treatment at [facility]
[2018-01-18] MEDS: IBUPROFEN 400 MG TABLET (FP) PO PRN (19:43)
[2018-01-18] MEDS: THIAMINE HCL 100 MG TABLET (FP) PO SCH (21:22)
[2018-01-18] MEDS: MELATONIN 5 MG TABLETS PO SCH (21:22)
[2018-01-19 07:12] VITALS: BP 110/66; PULSE 75; TEMP 97.8
[2018-01-19] MEDS ORDERED: PT OWN MED DRAWER 7, Y5N ONE (08:45)
== END 2018-01-19 09:50 | disposition home or self-care (01) | DRG 772 ==
LOC: YASAS 15:19 → Y3W 15:20
PROVIDERS: ADMIT Psychiatry & Neurology Psychiatry; ATTEND Psychiatry & Neurology Psychiatry
PROC: HZ42ZZZ Group Counseling for Substance Abuse Treatment, Cognitive-Behavioral (ICD-10-PCS; principal; 2017-12-29)
DX: F10.20 Alcohol dependence, uncomplicated (principal); F14.20 Cocaine dependence, uncomplicated; F12.20 Cannabis dependence, uncomplicated; F21 Schizotypal disorder